=== PATIENT | female | born 1990 | race Caucasian/White ===

== ENCOUNTER 2019-02-27 02:15 | Emergency (ER) | payer OTHER, SELFPAY ==
[2019-02-27 02:16] VITALS: BP 140/88; PULSE 96; RESP 16; TEMP 37.3; O2SAT 95; BMI 26.0
[2019-02-27] MEDS: Ketorolac 30 MG/ML Syringe IV (02:51)
[2019-02-27 03:09] LABS: Mucous, Urine 0 SEEN /hpf (<or=2+)
[2019-02-27 03:14] LABS: Color, Urine Yellow (Yellow); Glucose, Dipstick Normal (Normal); Ketone-Dipstick Negative (Negative); Leukocyte Esterase-Dipstick 500 /ul (Negative); Nitrite-Dipstick Negative (Negative); Occult Blood-Urine 250 /ul (Negative); Protein-Dipstick 100 mg/dl (Negative); Specific Gravity, Urine 1.025 (1.002-1.030); Urine Bilirubin Dipstick Negative (Negative); Urine Clarity Turbid (Clear); Urine Urobilinogen Normal (Normal)
[2019-02-27 03:17] LABS: Bacteria 3+ /hpf (None Seen); Red Blood Cells-Urine 25-50 SEEN /hpf (0-5); Squamous Epithelial Cells - UA 0-5 SEEN /hpf (5-10); White Blood Cells 50-100 SEEN /hpf (0-5)
[2019-02-27 03:18] LABS: Internal QC Validated? YES +Cl - CLEAR BKGD; Pregnancy, Urine Negative Negative
--- NOTE | 2019-02-27 03:27 | ED.VISSUMM ---
- ER Visit Summary Date of Service: 02/27/19 Chief Complaint: Abdominal pain History of Present Illness: The patient is a 28 F who presents with abdominal pain. This is been present for about 5 days. She complains of low left-sided abdominal pain. This is worsened particularly in the last hour. It was initially cramping. Her last period was last week. She denies any vaginal discharge. Her pain is now more sharp and stabbing. She denies any nausea vomiting fevers. No diarrhea. No vaginal bleeding currently. No dysuria. She reports some urinary frequency although she reports this to drinking water frequently and is not uncommon for her. Physical Examination: Afebrile vitals unremarkable No distress resting comfortably Moist mucous membranes Heart regular rate and rhythm Lungs clear Abdomen soft nondistended she does have some left-sided pelvic tenderness no guarding no rebound Test Results: Urinalysis shows 500 leukocyte esterase, 50-100 WBCs, 3+ bacteria. negative. Emergency Department Course and Treatment: Patient had an IV established on arrival by nursing due to chief complaint. Patient was given IV Toradol. On reevaluation she has had symptomatic improvement. She will be treated for UTI. She was given Macrobid here. I did explain to the patient although this certainly could cause pelvic pain I would not expect it to be unilateral and I am still suspicious for process such as ovarian cyst. I have very low clinical suspicion for ovarian torsion given that she is resting comfortably not tachycardic no vomiting. Ultrasound is not available overnight. I did write a prescription to have an outpatient ultrasound she was given clear instructions of signs and symptoms to monitor for and understands to return for new or worsening symptoms. Patient discharged. Treatment Plan: [] Disposition: Discharge Impression: Pelvic pain UTI This note was generated with [employer] software. It may contain incorrect words, spelling, and punctuation that were not noted in review of the chart prior to signing ED Disposition - Plan for ED Patient: Referrals: Merrill Dumont MD [Primary Care Provider] -
--- NOTE | 2019-02-27 03:31 | ED.DCSUM_ITS ---
- ER Visit Summary Date of Service: 02/27/19 Chief Complaint: Abdominal pain History of Present Illness: The patient is a 28 F who presents with abdominal pain. This is been present for about 5 days. She complains of low left-sided abdominal pain. This is worsened particularly in the last hour. It was i nitially cramping. Her last period was last week. She denies any vaginal discharge. Her pain is now more sharp and stabbing. She denies any nausea vomiting fevers. No diarrhea. No vaginal bleeding currently. No dysuria. She reports some urinary frequency although she reports this to drinking water frequently and is not uncommon for her. Physical Examination: Afebrile vitals unremarkable No distress resting comfortably Moist mucous membranes Heart regular rate and rhythm Lungs clear Abdomen soft nondistended she does have some left-sided pelvic tenderness no guarding no rebound Test Results: Urinalysis shows 500 leukocyte esterase, 50-100 WBCs, 3+ bacteria. negative. Emergency Department Course and Treatment: Patient had an IV established on arrival by nursing due to chief complaint. Patient was given IV Toradol. On reevaluation she has had symptomatic improvement. She will be treated for UTI. She was given Macrobid here. I did explain to the patient although this certainly could cause pelvic pain I would not expect it to be unilateral and I am still suspicious for process such as ovarian cyst. I have very low clinical suspicion for ovarian torsion given that she is resting comfortably not tachycardic no vomiting. Ultrasound is not available overnight. I did write a prescription to have an outpatient ultrasound she was given clear instructions of signs and symptoms to monitor for and understands to return for new or worsening symptoms. Patient discharged. Treatment Plan: [] Disposition: Discharge Impression: Pelvic pain UTI This note was generated with [employer] software. It may contain incorrect words, spelling, and punctuation that were not noted in review of the chart prior to signing ED Disposition - Plan for ED Patient: Referrals: Merrill Dumont MD [Primary Care Provider] -
--- NOTE | 2019-02-27 03:32 | ED.DEP ---
ED Disposition - Plan for ED Patient: Instructions: ED UTI Cystitis Female, ED Pelvic Pain [facility] Prescriptions: Nitrofurantoin Macrocrystals [Macrobid] 100 mg PO Q12 #14 cap Referrals: Merrill Dumont MD [Primary Care Provider] -
[2019-02-27] MEDS: Nitrofurantoin Macrocrystals 100 MG Capsule PO (03:40)
[2019-02-27 03:43] VITALS: BP 130/78; PULSE 80; RESP 16; O2SAT 100
== END 2019-02-27 03:44 | disposition home or self-care (01) ==
LOC: ED 02:43
PROVIDERS: Emergency Provider Emergency Medicine; Family Provider Family Medicine; PCP Family Medicine
DX: N39.0 Urinary tract infection, site not specified (principal); R10.2 Pelvic and perineal pain; F41.9 Anxiety disorder, unspecified
CPT/HCPCS: 81001; 81025; 96374; 99285; A4216

== ENCOUNTER → 2019-03-04 11:10 | Outpatient (CLI) | payer OTHER, SELFPAY ==
[2019-02-27 02:16] VITALS: BMI 26.0
--- NOTE | 2019-03-04 11:13 | US_ITS ---
STUDY: ULTRASOUND OF THE FEMALE PELVIS - COMPLETE REASON FOR EXAM: Female, 28 years old. Left-sided pelvic pain. LMP: February 14, 2019. TECHNIQUE: Transabdominal TECHNICAL QUALITY: Adequate. COMPARISON: None. FINDINGS: The uterus is anteverted and is in a midline position. The uterus measures 9 cm x 2.7 cm x 4.6 cm. cm. Normal uterine cervix. The endometrium measures 10.6 mm in thickness, and is hyperechoic. There is no demonstrated endometrial mass. There is no demonstrated myometrial mass. I.U.D. - The patient does not have an I.U.D. The right ovary is visualized. The right ovary measures 5.3 cm x 3.8 cm x 4.7 cm. There is a complex cyst in the right ovary measuring 3.7 cm x 3.6 cm x 2.8 cm. This may represent an hemorrhagic cyst. There is no visualized right adnexal mass or complex lesion. There is normal arterial and normal venous vascularity. The left ovary is visualized. The left ovary measures 3 cm x 2.3 cm x 2.7 cm. There is no left ovarian cyst or ovarian mass. There is no visualized left adnexal mass or complex lesion. There is normal arterial and normal venous vascularity. There is no fluid in the cul-de-sac. The pre void volume of the bladder was 518 ml. Polycystic ovary disease: No. US/Pelvic (Non ) IMPRESSION: 3.7 cm x 3.6 cm x 2.8 cm complex cyst in the right ovary most likely representing an hemorrhagic cyst. Electronically Signed: Delvin Thomas, at 15:12 EDT , Service support ,
== END ==
PROVIDERS: Family Provider Family Medicine; PCP Family Medicine; Referring Provider Nurse Practitioner Family; Visit Provider Nurse Practitioner Family
DX: R10.2 Pelvic and perineal pain (principal)
CPT/HCPCS: 76856

== ENCOUNTER → 2019-03-25 14:12 | Outpatient (CLI) | payer OTHER, SELFPAY ==
[2019-02-27 02:16] VITALS: BMI 26.0
[2019-03-25 19:08] LABS: Chlamydia Trachomatis by PCR POSITIVE (Negative); Neisserai gonorrhoeae by PCR Negative (Negative); Probe Check PASS; Sample Adequacy Control PASS; Specimen Processing Control PASS
[2019-03-30 13:25] LABS: HPV Reflexed? NOT INDICATED
== END ==
PROVIDERS: Family Provider Family Medicine; PCP Family Medicine; Visit Provider Obstetrics & Gynecology
DX: Z12.4 Encounter for screening for malignant neoplasm of cervix (principal); Z11.3 Encounter for screening for infections with a predominantly sexual mode of transmission
CPT/HCPCS: 87491; 87591; 88175; G0145

== ENCOUNTER → 2019-05-03 | Outpatient (CLI) | payer OTHER, SELFPAY ==
[2019-05-03 18:09] LABS: Chlamydia Trachomatis by PCR Negative (Negative); Neisserai gonorrhoeae by PCR Negative (Negative); Probe Check PASS; Sample Adequacy Control PASS; Specimen Processing Control PASS
== END | disposition home or self-care (01) ==
LOC: WOBLAB 10:48
PROVIDERS: Family Provider Family Medicine; PCP Family Medicine; Visit Provider Obstetrics & Gynecology
DX: Z11.3 Encounter for screening for infections with a predominantly sexual mode of transmission (principal)
CPT/HCPCS: 87491; 87591

== ENCOUNTER → 2022-06-25 | Outpatient (CLI) | payer OTHER, SELFPAY ==
[2022-06-29 16:53] LABS: HPV Reflexed? NOT INDICATED
== END | disposition home or self-care (01) ==
LOC: LABSPEC 09:19
PROVIDERS: PCP Family Medicine; Visit Provider Obstetrics & Gynecology
DX: Z12.4 Encounter for screening for malignant neoplasm of cervix (principal)
CPT/HCPCS: 88175; G0145